=== PATIENT | male | born 1995 ===

== ENCOUNTER 2016-12-05 16:19 | Emergency (ER) | payer BC ==
[2016-12-05 17:16] VITALS: BP 119/80
--- NOTE | 2016-12-05 17:40 | UC ---
Ear Complaint HPI - HPI Summary HPI Summary: patient has had right ear pain for a few days. he states it is now into the jaw and right side of the neck. - History of Current Complaint Chief Complaint: UCEar Stated Complaint: RIGHT EAR PAIN Time Seen by Provider: 12/05/16 17:34 Hx From Patient Unobtainable Due To: Dementia Onset/Duration: Sudden Onset, Lasting Days Severity Initially: Moderate Severity Currently: Moderate Associated Signs/Symptoms: Positive: Hearing Loss, Swelling @ - right ear, URI Symptoms - Allergies/Home Medications Allergies/Adverse Reactions: Allergies Allergy/AdvReac Type Severity Reaction Status Date / Time seasonal Allergy Congestion Uncoded 12/05/16 17:16 Home Medications: Home Medications Acetaminophen [Acetaminophen Extra Stren] 1,000 mg PO ONCE PRN 12/05/16 [ History Confirmed 12/05/16] Allergy Shots 1 dose SUBCUT SEE INSTRUCTIONS 12/05/16 [History Confirmed ] Ibuprofen TAB* [Motrin TAB* 800 MG] 800 mg PO Q3H PRN 12/05/16 [History Confirmed 12/05/16] LevoCETirizine TAB (NF) [Xyzal TAB (NF)] 5 mg PO DAILY 12/05/16 [History Confirmed 12/05/16] PMH/Surg Hx/FS Hx/Imm Hx Previously Healthy: Yes - Surgical History Surgical History: Yes Surgery Procedure, Year, and Place: tonsils 1999 - Family History Known Family History: Positive: Cardiac Disease Negative: Hypertension - Social History Alcohol Use: None Substance Use Type: None Smoking Status (MU): Never Smoked Tobacco Review of Systems Constitutional: Fever Skin: Negative Eyes: Negative ENT: Ear Ache Respiratory: Negative Cardiovascular: Negative Gastrointestinal: Negative Genitourinary: Negative Motor: Negative Neurovascular: Negative Musculoskeletal: Negative Neurological: Negative Psychological: Negative All Other Systems Reviewed And Are Negative: Yes Physical Exam Triage Information Reviewed: Yes Appearance: Well-Nourished, Ill-Appearing, Pain Distress Vital Signs: Initial Vital Signs Temp 100.4 F 12/05/16 17:09 Pulse 70 12/05/16 17:09 Resp 12 12/05/16 17:09 BP 119/80 12/05/16 17:09 Vital Signs Reviewed: Yes Eye Exam: Normal Eyes: Positive: Conjunctiva Clear ENT Exam: Normal ENT: Positive: Normal ENT inspection, Hearing grossly normal, Pharynx normal, TMs normal, Other: - bilateral cerumen impaction Dental Exam: Normal Neck exam: Normal Neck: Positive: Supple, Nontender, Enlarged Nodes @ - behind right ear Respiratory Exam: Normal Respiratory: Positive: Chest non-tender, Lungs clear, Normal breath sounds Cardiovascular Exam: Normal Cardiovascular: Positive: RRR, No Murmur, Pulses Normal Abdominal Exam: Normal Abdomen Description: Positive: Nontender, No Organomegaly, Soft Bowel Sounds: Positive: Present Musculoskeletal Exam: Normal Musculoskeletal: Positive: Strength Intact, ROM Intact, No Edema Neurological Exam: Normal Neurological: Positive: Alert, Muscle Tone Normal Psychological Exam: Normal Skin Exam: Normal Ear Complaint Course/Dx - Course Course Of Treatment: hx obtained, exam performed, meds reviewed, ears flushed treated for right otitis externa and media - Differential Dx/Diagnosis Differential Diagnosis/HQI/PQRI: Cerumen Impaction, Otitis Externa, Otitis Media Provider Diagnoses: bilateral cerumen impaction Discharge - Discharge Plan Condition: Stable Disposition: HOME Prescriptions: Amoxicillin (*) [Amoxicillin 875 MG (*)] 875 mg PO BID #20 tab Ciproflox/Dexameth OTIC.SUSP* [Ciprodex OTIC.SUSP*] 4 drop .SEE ORDER BID #1 btl Patient Education Materials: Otitis Externa (ED), Otitis Media (ED) Additional Instructions: 1. take the medications as prescribed. 2. warm compresses to the right ear and neck 3. ibuprofen and tylenol for pain and fever.
== END 2016-12-05 18:48 | disposition home or self-care (01) ==
LOC: UCCORT 16:19
DX: H61.23 Impacted cerumen, bilateral (principal)
CPT/HCPCS: 99203; G0463